=== PATIENT | female | born 1960 | race Two or more races ===

== ENCOUNTER → 2025-03-17 | Outpatient (CLI) | payer BC, SELFPAY ==
--- NOTE | 2025-03-17 16:41 | XR_ITS ---
EXAMINATION: Cervical spine, 5 views Technique: Cervical spine AP, AP odontoid, lateral, bilateral obliques, 5 views Exam date and time: March 17, 2025 1648 hours INDICATIONS: Neck pain years. FINDINGS: Moderate degenerative disc disease C5-C6, C6-C7 with moderate bilateral neural foraminal stenosis No cervical fracture Intact odontoid IMPRESSION: Moderate degenerative disc disease C5-C6, C6-C7
== END | disposition home or self-care (01) ==
LOC: SDIM 16:31
PROVIDERS: PCP Internal Medicine; Referring Provider Internal Medicine; Visit Provider Internal Medicine
DX: M50.323 Other cervical disc degeneration at C6-C7 level (principal); M50.322 Other cervical disc degeneration at C5-C6 level
CPT/HCPCS: 72050